=== PATIENT | female | born 1970 | race Caucasian/White ===

== ENCOUNTER 2022-09-16 08:16 | Outpatient (CLI) | payer OTHER, SELFPAY ==
--- OUTSIDE RECORDS SUMMARY | 2022-09-16 08:18 | XMS_ITS | Encounter Summary ---
:1970 Author Organization [place] Address [address] [place] [address] Care Team Providers Name Role Phone Lois Estevez MD Primary Care Provider Reason for Referral Diagnostic Imaging Mammo (Routine) - Closed Specialty Diagnoses / Procedures Referred By Contact Refer red To Contact Diagnoses Visit for screening mammogram Lois Estevez MD Procedures MA Screen Bilateral w/Jose MA Screening Digital Bilateral [address] [place] [place] [phone] Referral ID Status Reason Start Date Expiration Date Visits Requ ested Visits Authorized [id number] Closed 07/28/2019 07/27/2020 1 1 FOLDING MACHINE OPERATOR Reason for Visit Diagnostic Imaging Mammo (Routine) - Closed Specialty Diagnoses / Procedures Referred By Contact Refer red To Contact Diagnoses Visit for screening mammogram Lois Estevez MD Procedures MA Screen Bilateral w/Jose MA Screening Digital Bilateral [address] [place] [address] Referral ID Status Reason Start Date Expiration Date Visits Requ ested Visits Authorized [id number] Closed 07/28/2019 07/27/2020 1 1 Encounter Details Date Type Department Care Team Description 10/11/2019 Hospital Encounter [facility] Lois Estevez for screening [facility] Breast [place] MD [place] mammogram [address], [address] [place] [address] Social History Tobacco Use Types Packs/Day Years Used Date Smoking Tobacco: Never Assessed Sex Assigned at Date Recorded Not on file documented as of this encounter Plan of Treatment Upcoming Encounters Date Type Specialty Care Team Description 11/04/2022 Appointment Radiology. Lois Estevez MD [address] [place] [phone] (Wo rk) documented as of this encounter Procedures Procedure Name Priority Date/Time Associated Diagnosis Comme nts MA SCREENING Routine 10/11/2019 8:22 AM Visit for screening Re sults for this BILATERAL W/ JOSE FLAT FOLDING MACHINE OPERATOR mammogram procedure are in the results section. documented in this encounter Results MA Screen Bilateral w/Jose (10/11/2019 8:22 AM FLAT FOLDING MACHINE OPERATOR) Anatomical Region Laterality Modality Breast Bilateral Mammography Specimen (Source) Anatomical Location Collection Method / Collectio n Time Received Time / Laterality Volume Impressions 10/11/2019 8:29 AM FLAT FOLDING MACHINE OPERATOR IMPRESSION: BI-RADS CATEGORY: 1 - ??Negative. RECOMMENDED FOLLOW-UP: Annual Mammograph asad ALBARRAN MD Narrative 10/11/2019 8:29 AM FLAT FOLDING MACHINE OPERATOR SCREENING MAMMOGRAM, BILATERAL, DIGITAL w/CAD and TOMOSYNTHESIS, 10/11/2019 8:28 AM BREAST DENSITY: Heterogeneously dense. CLINICAL INFORMATION: Breast screening. ??Visit for screening mammogram, 10/05/2018 FINDINGS: Negative. Stable exam. Screeni ng exam in one year recommended. Procedure Note Michael Albarran MD - 10/11/2019Formatt ing of this note might be different from the original. SCREENING MAMMOGRAM, BILATERAL, DIGITAL w/CAD and TOMOSYNTHESIS, 10/11/2019 8:28 AM BREAST DENSITY: Heterogeneously dense. CLINICAL INFORMATION: Breast screening. Visit for screening mammogram, 10/05/2018 FINDINGS: Negative. Stable exam. Screeni ng exam in one year recommended. IMPRESSION: BI-RADS CATEGORY: 1 - Negati ve. RECOMMENDED FOLLOW-UP: Annual Mammograph asad ALBARRAN MD Lois Estevez MD IMG MAMMOGRAPHY ORDERABLES documented in this encounter Visit Diagnoses Diagnosis Visit for screening mammogram Other screening mammogram documented in this encounter Care Teams Electrical Prospecting Supervisor Relationship Specialty Start Date End Date Lois Estevez MD PCP - General chemical plant manager 08/10/[address] [facility] 100 [place] [phone] documented as of this encounter
--- OUTSIDE RECORDS SUMMARY | 2022-09-16 08:18 | XMS_ITS | Encounter Summary ---
:1970 Author Organization [place] Address [address] [place] [address] Care Team Providers Name Role Phone Lois Estevez MD Primary Care Provider Reason for Visit (Routine) - Closed Specialty Diagnoses / Procedures Referred By Contact Refer red To Contact Radiology Diagnoses SCREENING BILATERAL-DIGITAL Procedure Notes: 08/12/2011, 07/29/2010, 07/09/2008 Breast Center Procedures RADIOLOGY [address] [facility], [address] [place], [place] [address] Phone: Fax: Referral ID Status Reason Start Date Expiration Date Visits Requ ested Visits Authorized [id number] Closed 08/12/2012 08/12/2013 1 1 Encounter Details Date Type Department Care Team Description 08/16/2012 Hospital Encounter [facility] [address] [place], [address] [place] [address] [place] [phone] Social History Tobacco Use Types Packs/Day Years Used Date Smoking Tobacco: Never Assessed Sex Assigned at Date Recorded Not on file documented as of this encounter Plan of Treatment Upcoming Encounters Date Type Specialty Care Team Description 11/04/2022 Appointment Radiology. Lois Estevez MD [address] [place] [address] (Wo rk) documented as of this encounter Procedures Procedure Name Priority Date/Time Associated Diagnosis Comme nts MA SCREENING Routine 08/16/2012 9:28 AM Results f or this DIGITAL BILATERAL CDT procedure are in the results section. documented in this encounter Results Mammo Screening digital (bilat) (08/16/2012 9:28 AM CDT) Anatomical Region Laterality Modality Breast Bilateral Other Specimen (Source) Anatomical Collection Method Collection Time Re ceived Time Location / / Volume Laterality 08/16/2012 9:28 AM CDT Impressions 08/16/2012 10:51 AM CDT SCREENING MAMMOGRAPHY, BILATERAL, DIGITA L, w/CAD ??August 16, 2012. HISTORY/COMPARISON: 08/12/2011, 07/09/20 08 BREAST DENSITY: ??Heterogeneously dense. FINDINGS: ??No findings of suspicion for malignancy. IMPRESSION: ??BI-RADS 1, NEGATIVE. RECOMMENDATION: ??Annual screening mammo graphy. Lois Estevez MD IMG MAMMOGRAPHY ORDERABLES documented in this encounter Visit Diagnoses Not on filedocumented in this encounter Care Teams Professor Of Special Education Relationship Specialty Start Date End Date Lois Estevez MD PCP - General pewter fabricator 08/10/11 [address] [facility] 100 [place] [address] documented as of this encounter
--- OUTSIDE RECORDS SUMMARY | 2022-09-16 08:18 | XMS_ITS | Encounter Summary ---
:1970 Author Organization [place] Address [address] [place] [address] Care Team Providers Name Role Phone Lois Estevez MD Primary Care Provider Reason for Referral Diagnostic Imaging Mammo (Routine) - Closed Specialty Diagnoses / Procedures Referred By Contact Refer red To Contact Diagnoses Visit for screening mammogram Lois Estevez MD Procedures MA Screen Bilateral w/Jose [address] [phone] Referral ID Status Reason Start Date Expiration Date Visits Requ ested Visits Authorized [id number] Closed 09/04/2021 09/04/2022 1 1 UM OR ZOO DIRECTOR Reason for Visit Diagnostic Imaging Mammo (Routine) - Closed Specialty Diagnoses / Procedures Referred By Contact Refer red To Contact Diagnoses Visit for screening mammogram Lois Estevez MD Procedures MA Screen Bilateral w/Jose [address] [facility] 100 [place] [address] Referral ID Status Reason Start Date Expiration Date Visits Requ ested Visits Authorized [id number] Closed 09/04/2021 09/04/2022 1 1 Encounter Details Date Type Department Care Team Description 10/31/2021 Hospital Encounter [facility] Lois Estevez for screening [facility] Breast [place] MD [place] mammogram [address], [address] [place] [phone] Social History Tobacco Use Types Packs/Day Years Used Date Smoking Tobacco: Never Assessed Sex Assigned at Date Recorded Not on file COVID-19 Exposure Response Date Recorded In the last month, have you been in contact with No / Unsure 10/31/2021 7:36 AM MUSEUM OR ZOO DIRECTOR someone who was confirmed or suspected to have Coronavirus / COVID-19? documented as of this encounter Plan of Treatment Upcoming Encounters Date Type Specialty Care Team Description 11/04/2022 Appointment Radiology. Lois Estevez MD [address] [place] [phone] (Wo rk) documented as of this encounter Procedures Procedure Name Priority Date/Time Associated Diagnosis Comme nts MA SCREENING Routine 10/31/2021 8:44 AM Visit for screening Re sults for this BILATERAL W/ JOSE MUSEUM OR ZOO DIRECTOR mammogram procedure are in the results section. documented in this encounter Results MA Screen Bilateral w/Jose (10/31/2021 8:44 AM MUSEUM OR ZOO DIRECTOR) Anatomical Region Laterality Modality Breast Bilateral Mammography Specimen (Source) Anatomical Location Collection Method / Collectio n Time Received Time / Laterality Volume Narrative 10/31/2021 9:59 AM MUSEUM OR ZOO DIRECTOR BILATERAL FULL FIELD DIGITAL SCREENING MAMMOGRAM WITH TOMOSYNTHESIS Performed on: 10/31/21 Compared to: 10/11/2020 and 09/16/2015 Technique: ??This study was evaluated wi th the assistance of Computer-Aided Detection. ??Breast Tomosynthesis was us ed in interpretation. Findings: The breasts have scattered are as of fibroglandular density. ?? There is no radiographic evidence of mal ignancy. IMPRESSION: ACR BI-RADS Category 1: Nega tive RECOMMENDED FOLLOW-UP: Annual routine sc reening mammogram The results and recommendations of this examination will be communicated to the patient. Lois Estevez MD IMG MAMMOGRAPHY ORDERABLES documented in this encounter Visit Diagnoses Diagnosis Visit for screening mammogram Other screening mammogram documented in this encounter Care Teams Hvac Operations Technician Relationship Specialty Start Date End Date Lois Estevez MD PCP - General wire frame maker 08/10/[address] [facility] 100 [place] [address] documented as of this encounter
--- OUTSIDE RECORDS SUMMARY | 2022-09-16 08:18 | XMS_ITS | Encounter Summary ---
:1970 Author Organization [place] [facility] Address [address] [place] [address] Care Team Providers Name Role Phone Lois Estevez MD Primary Care Provider Encounter Details Date Type Department Care Team Description 10/11/2020 Travel Social History Tobacco Use Types Packs/Day Years Used Date Smoking Tobacco: Never Assessed Sex Assigned at Date Recorded Not on file COVID-19 Exposure Response Date Recorded In the last month, have you been in contact with No / Unsure 10/11/2020 9:10 AM BI DEVELOPER someone who was confirmed or suspected to have Coronavirus / COVID-19? documented as of this encounter Plan of Treatment Upcoming Encounters Date Type Specialty Care Team Description 11/04/2022 Appointment Radiology. Lois Estevez MD [address] [place], [place] [phone] (Wo rk) documented as of this encounter Visit Diagnoses Not on filedocumented in this encounter Care Teams Transport Assistant Relationship Specialty Start Date End Date Lois Estevez MD PCP - General sand conditioner machine 08/10/[address] [place] [phone] documented as of this encounter
--- OUTSIDE RECORDS SUMMARY | 2022-09-16 08:18 | XMS_ITS | Encounter Summary ---
:1970 Author Organization [facility] Address [address] [place] [address] Care Team Providers Name Role Phone Lois Estevez MD Primary Care Provider Reason for Referral Diagnostic Imaging Mammo - Closed Specialty Diagnoses / Procedures Referred By Contact Refer red To Contact Radiology. Diagnoses Visit for screening mammogram Lois Estevez MD Breast Center Procedures MA Screening Digital Bilateral [address] [facility] [address] [place] [address] [address] [place] [address] Phone: Fax: Referral ID Status Reason Start Date Expiration Date Visits Requ ested Visits Authorized [id number] Closed 07/26/2018 07/26/2019 1 1 [facility] Reason for Visit Diagnostic Imaging Mammo - Closed Specialty Diagnoses / Procedures Referred By Contact Refer red To Contact Radiology. Diagnoses Visit for screening mammogram Lois Estevez MD Breast Center Procedures MA Screening Digital Bilateral [address] [place] [address] [address] [place] [address] Phone: Fax: Referral ID Status Reason Start Date Expiration Date Visits Requ ested Visits Authorized [id number] Closed 07/26/2018 07/26/2019 1 1 Encounter Details Date Type Department Care Team Description 10/05/2018 Hospital Encounter [facility] Lois Estevez it for screening [facility] Breast [facility] MD [place] mammogram [address], [address] [place], [place] [phone] Social History Tobacco Use Types Packs/Day Years Used Date Smoking Tobacco: Never Assessed Sex Assigned at Date Recorded Not on file documented as of this encounter Plan of Treatment Upcoming Encounters Date Type Specialty Care Team Description 11/04/2022 Appointment Radiology. Lois Estevez MD [address] [place] [phone] (Wo rk) documented as of this encounter Procedures Procedure Name Priority Date/Time Associated Diagnosis Comme nts MA SCREENING Routine 10/05/2018 8:24 AM Visit for screening Re sults for this DIGITAL BILATERAL PHERESIS SPECIALIST mammogram procedure are in the results section. documented in this encounter Results MA Screening Digital Bilateral (10/05/2018 8:24 AM PHERESIS SPECIALIST) Anatomical Region Laterality Modality Breast Bilateral Mammography Specimen (Source) Anatomical Location Collection Method / Collectio n Time Received Time / Laterality Volume Impressions 10/05/2018 9:20 AM PHERESIS SPECIALIST IMPRESSION: BI-RADS CATEGORY: 1 - Negative. RECOMMENDED FOLLOW-UP: Annual Mammograph y. Recommend routine annual screening mammo graphy. Exam results letter mailed to patient. ALISA BLUE MD Narrative 10/05/2018 9:20 AM PHERESIS SPECIALIST SCREENING MAMMOGRAM, BILATERAL, DIGITAL w/CAD - 10/05/2018 8:24 AM. BREAST SYMPTOMS: No current breast compl aints. COMPARISON: ??09/29/17, 08/31/13. BREAST DENSITY: Scattered fibroglandular densities. COMMENTS: No findings of suspicion for m alignancy. Procedure Note Alisa Blue MD - 10/05/2018 SCREENING MAMMOGRAM, BILATERAL, DIGITAL w/CAD - 10/05/2018 8:24 AM. BREAST SYMPTOMS: No current breast compl aints. COMPARISON: 09/29/17, 08/31/13. BREAST DENSITY: Scattered fibroglandular densities. COMMENTS: No findings of suspicion for m alignancy. IMPRESSION: BI-RADS CATEGORY: 1 - Negati ve. RECOMMENDED FOLLOW-UP: Annual Mammograph y. Recommend routine annual screening mammo graphy. Exam results letter mailed to patient. ALISA BLUE MD Lois Estevez MD IMG MAMMOGRAPHY ORDERABLES documented in this encounter Visit Diagnoses Diagnosis Visit for screening mammogram Other screening mammogram documented in this encounter Care Teams Plant Maintenance Worker Relationship Specialty Start Date End Date Lois Estevez MD PCP - General pavilion cutter 08/10/11 [address] [facility] 100 [place] [address] documented as of this encounter
--- OUTSIDE RECORDS SUMMARY | 2022-09-16 08:18 | XMS_ITS | Encounter Summary ---
:1970 Author Organization [place] Address [address] [place] [address] Care Team Providers Name Role Phone Unavailable Primary Care Provider Unavailable Encounter Details Date Type Department Care Team Description 07/29/2010 Results Only [facility] Lois Estevez MD Hospital Results [address] [phone] (Wo rk) Social History Tobacco Use Types Packs/Day Years Used Date Smoking Tobacco: Never Assessed Sex Assigned at Date Recorded Not on file documented as of this encounter Plan of Treatment Upcoming Encounters Date Type Specialty Care Team Description 11/04/2022 Appointment Radiology. Lois Estevez MD [address] [place], [place] [phone] (Wo rk) documented as of this encounter Procedures Procedure Name Priority Date/Time Associated Diagnosis Comme [facility] MAMMO SCREEN Routine 07/29/2010 10:04 AM Resul ts for this BILATATERAL, INCL CDT procedure are in CAD WHEN PERF the results section. documented in this encounter Results SCREENING MAMMOGRAPHY DIGITAL (BILAT) (07/29/2010 10:04 AM CDT) Anatomical Region Laterality Modality Other Specimen (Source) Anatomical Collection Method Collection Time Re ceived Time Location / / Volume Laterality 07/29/2010 10:04 AM CDT Impressions 07/29/2010 10:36 AM CDT SCREENING MAMMOGRAM, BILATERAL, DIGITAL w/CAD BREAST SYMPTOMS/COMPARISON: 07/22/2009,0 07/09/2008 BREAST PARENCHYMAL PATTERN: Heterogeneou sly dense FINDINGS: Negative. IMPRESSION: BI-RADS 1, NEGATIVE. Lois Estevez MD SPECIAL IMAGING STUDIES documented in this encounter Visit Diagnoses Not on filedocumented in this encounter
--- OUTSIDE RECORDS SUMMARY | 2022-09-16 08:18 | XMS_ITS | Encounter Summary ---
:1970 Author Organization [facility] Address [address] [place] [address] Care Team Providers Name Role Phone Lois Estevez MD Primary Care Provider Encounter Details Date Type Department Care Team Description 10/05/2018 Travel Social History Tobacco Use Types Packs/Day Years Used Date Smoking Tobacco: Never Assessed Sex Assigned at Date Recorded Not on file documented as of this encounter Plan of Treatment Upcoming Encounters Date Type Specialty Care Team Description 11/04/2022 Appointment Radiology. Lois Estevez MD [address] [place] [phone] (Wo rk) documented as of this encounter Visit Diagnoses Not on filedocumented in this encounter Care Teams Cook Night Relationship Specialty Start Date End Date Lois Estevez MD PCP - General fun house attendant 08/10/[address] [place] [phone] documented as of this encounter
--- OUTSIDE RECORDS SUMMARY | 2022-09-16 08:18 | XMS_ITS | Encounter Summary ---
:1970 Author Organization [facility] Address [address] [place] [address] Care Team Providers Name Role Phone Lois Estevez MD Primary Care Provider Reason for Visit (Routine) - Closed Specialty Diagnoses / Procedures Referred By Contact Refer red To Contact Radiology / Radiology. Diagnoses sb: pt. ni, [facility] 08/16/12, no assistance Rh Breast [facility] Procedures MA SCREENING DIGITAL BILATERAL [address], [address] [place] [address] Phone: Fax: Referral ID Status Reason Start Date Expiration Date Visits Requ ested Visits Authorized [id number] Closed 08/30/2013 08/30/2014 1 1 Encounter Details Date Type Department Care Team Description 08/31/[address] [facility] Lois Estevez [facility] er screening [facility] MD [place] mammogram [address], [address] [place] [phone] Social History Tobacco Use Types Packs/Day Years Used Date Smoking Tobacco: Never Assessed Sex Assigned at Date Recorded Not on file documented as of this encounter Plan of Treatment Upcoming Encounters Date Type Specialty Care Team Description 11/04/2022 Appointment Radiology. Lois Estevez MD [address] [place] [phone] (Wo rk) documented as of this encounter Procedures Procedure Name Priority Date/Time Associated Diagnosis Comme nts MA SCREENING Routine 08/31/2013 9:50 AM Other screening Result s for this DIGITAL BILATERAL DATABASE ANALYST mammogram procedure are in the results section. documented in this encounter Results MA Screening Digital Bilateral (08/31/2013 9:50 AM DATABASE ANALYST) Anatomical Region Laterality Modality Breast Bilateral Mammography Specimen (Source) Anatomical Location Collection Method / Collectio n Time Received Time / Laterality Volume Impressions 08/31/2013 9:55 AM DATABASE ANALYST IMPRESSION: BI-RADS CATEGORY: 1 - ??NEGATIVE RECOMMENDED FOLLOW-UP: Annual Mammograph y DIO ALBARRAN MD Narrative 08/31/2013 9:55 AM DATABASE ANALYST SCREENING MAMMOGRAM, BILATERAL, DIGITAL w/CAD, 08/31/2013 9:54 AM BREAST DENSITY: Heterogeneously dense ? FINDINGS: Negative. Screening exam in on e year recommended. Procedure Note Dio Albarran MD - 08/31/2013Formatt ing of this note might be different from the original. SCREENING MAMMOGRAM, BILATERAL, DIGITAL w/CAD, 08/31/2013 9:54 AM BREAST DENSITY: Heterogeneously dense FINDINGS: Negative. Screening exam in on e year recommended. IMPRESSION IMPRESSION: BI-RADS CATEGORY: 1 - NEGATI VE RECOMMENDED FOLLOW-UP: Annual Mammograph y DIO ALBARRAN MD Lois Estevez MD IMG MAMMOGRAPHY ORDERABLES documented in this encounter Visit Diagnoses Diagnosis Other screening mammogram documented in this encounter Care Teams Girls Tennis Coach Relationship Specialty Start Date End Date Lois Estevez MD PCP - General service rig operator 08/10/[address] [place] [address] documented as of this encounter
--- OUTSIDE RECORDS SUMMARY | 2022-09-16 08:18 | XMS_ITS | Encounter Summary ---
:1970 Author Organization [place] Address [address] [place] [address] Care Team Providers Name Role Phone Lois Estevez MD Primary Care Provider Reason for Visit (Routine) - Closed Specialty Diagnoses / Procedures Referred By Contact Refer red To Contact Radiology / Radiology. Diagnoses Prev at [facility] -genny info given Breast Center Procedures MA SCREENING DIGITAL BILATERAL [address], [address] [place] [address] Phone: Fax: Referral ID Status Reason Start Date Expiration Date Visits Requ ested Visits Authorized [id number] Closed 09/12/2015 09/11/2016 1 1 Encounter Details Date Type Department Care Team Description 09/16/2015 Hospital Encounter [facility] Lois Estevez for screening [facility] Breast [place] MD [place] mammogram [address], [address] [place], [place] [phone] Social History Tobacco Use Types Packs/Day Years Used Date Smoking Tobacco: Never Assessed Sex Assigned at Date Recorded Not on file documented as of this encounter Plan of Treatment Upcoming Encounters Date Type Specialty Care Team Description 11/04/2022 Appointment Radiology. Lois Estevez MD [address] [place] [phone] (Wo rk) documented as of this encounter Procedures Procedure Name Priority Date/Time Associated Diagnosis Comme nts MA SCREENING Routine 09/16/2015 9:53 AM Visit for screening Re sults for this DIGITAL BILATERAL ENVIRONMENTAL SERVICES SUPERVISOR mammogram procedure are in the results section. documented in this encounter Results MA Screening Digital Bilateral (09/16/2015 9:53 AM ENVIRONMENTAL SERVICES SUPERVISOR) Anatomical Region Laterality Modality Breast Bilateral Mammography Specimen (Source) Anatomical Location Collection Method / Collectio n Time Received Time / Laterality Volume Impressions 09/16/2015 10:07 AM ENVIRONMENTAL SERVICES SUPERVISOR IMPRESSION: BI-RADS CATEGORY: 1 - ??Negative. RECOMMENDED FOLLOW-UP: Annual Mammograph y. ?? DIO ALBARRAN MD Narrative 09/16/2015 10:07 AM ENVIRONMENTAL SERVICES SUPERVISOR SCREENING MAMMOGRAM, BILATERAL, DIGITAL w/CAD, 09/16/2015 10:07 AM BREAST DENSITY: Scattered fibroglandular densities. CLINICAL INFORMATION: ??Encounter for sc reening mammogram for malignant neoplasm of breast, 09/05/2014, 1 FINDINGS: Negative. Screening exam in on e year recommended. Procedure Note Dio Albarran MD - 09/16/2015Formatt ing of this note might be different from the original. SCREENING MAMMOGRAM, BILATERAL, DIGITAL w/CAD, 09/16/2015 10:07 AM BREAST DENSITY: Scattered fibroglandular densities. CLINICAL INFORMATION: Encounter for scre ening mammogram for malignant neoplasm of breast, 09/05/2014, 1 FINDINGS: Negative. Screening exam in on e year recommended. IMPRESSION IMPRESSION: BI-RADS CATEGORY: 1 - Negati ve. RECOMMENDED FOLLOW-UP: Annual Mammograph y. DIO ALBARRAN MD Lois Estevez MD IMG MAMMOGRAPHY ORDERABLES documented in this encounter Visit Diagnoses Diagnosis Visit for screening mammogram Other screening mammogram documented in this encounter Care Teams Ux Specialist Relationship Specialty Start Date End Date Lois Estevez MD PCP - General grain elevator agent 08/10/[address] [place] [phone] documented as of this encounter
--- OUTSIDE RECORDS SUMMARY | 2022-09-16 08:18 | XMS_ITS | Encounter Summary ---
:1970 Author Organization [place] Address [address] [place] [address] Care Team Providers Name Role Phone Lois Estevez MD Primary Care Provider Reason for Referral Diagnostic Imaging Mammo (Routine) - Closed Specialty Diagnoses / Procedures Referred By Contact Refer red To Contact Diagnoses Screening mammogram, encounter for Lois Estevez MD Procedures MA Screen Bilateral w/Jose [address] [place] [address] Referral ID Status Reason Start Date Expiration Date Visits Requ ested Visits Authorized [id number] Closed 08/06/2020 08/06/2021 1 1 GRINDER Reason for Visit Diagnostic Imaging Mammo (Routine) - Closed Specialty Diagnoses / Procedures Referred By Contact Refer red To Contact Diagnoses Screening mammogram, encounter for Lois Estevez MD Procedures MA Screen Bilateral w/Jose [address] [place] [address] Referral ID Status Reason Start Date Expiration Date Visits Requ ested Visits Authorized [id number] Closed 08/06/2020 08/06/2021 1 1 Encounter Details Date Type Department Care Team Description 10/11/2020 Hospital Encounter [facility] Lois Estevezning mammogram, [facility] Breast [place] MD [place] encounter for [address], [address] [place], [place] [phone] Social History Tobacco Use Types Packs/Day Years Used Date Smoking Tobacco: Never Assessed Sex Assigned at Date Recorded Not on file COVID-19 Exposure Response Date Recorded In the last month, have you been in contact with No / Unsure 10/11/2020 9:10 AM SALT GRINDER someone who was confirmed or suspected to have Coronavirus / COVID-19? documented as of this encounter Plan of Treatment Upcoming Encounters Date Type Specialty Care Team Description 11/04/2022 Appointment Radiology. Lois Estevez MD [address] [place] [phone] (Wo rk) documented as of this encounter Procedures Procedure Name Priority Date/Time Associated Diagnosis Comme nts MA SCREENING Routine 10/11/2020 9:55 AM Screening mammogram, R esults for this BILATERAL W/ JOSE SALT GRINDER encounter for procedure are in the results section. documented in this encounter Results MA Screen Bilateral w/Jose (10/11/2020 9:55 AM SALT GRINDER) Anatomical Region Laterality Modality Breast Bilateral Mammography Specimen (Source) Anatomical Location Collection Method / Collectio n Time Received Time / Laterality Volume Impressions 10/11/2020 11:58 AM SALT GRINDER IMPRESSION: BI-RADS CATEGORY: 1 - ??Negative RECOMMENDED FOLLOW-UP: Annual Mammograph y. Exam results letter mailed to patient. MARNI LOPEZ MD Narrative 10/11/2020 11:58 AM SALT GRINDER SCREENING MAMMOGRAM, BILATERAL, DIGITAL w/CAD and TOMOSYNTHESIS - 10/11/2020 9:55 AM BREAST SYMPTOMS: No current breast compl aints. COMPARISON: ??10/11/2019, 09/22/2016. BREAST DENSITY: Scattered fibroglandular densities. COMMENTS: No findings of suspicion for m alignancy. Procedure Note Marni Lopez MD - 10/11/2020F ormatting of this note might be different from the original. SCREENING MAMMOGRAM, BILATERAL, DIGITAL w/CAD and TOMOSYNTHESIS - 10/11/2020 9:55 AM BREAST SYMPTOMS: No current breast compl aints. COMPARISON: 10/11/2019, 09/22/2016. BREAST DENSITY: Scattered fibroglandular densities. COMMENTS: No findings of suspicion for m alignancy. IMPRESSION: BI-RADS CATEGORY: 1 - Negati ve RECOMMENDED FOLLOW-UP: Annual Mammograph y. Exam results letter mailed to patient. MARNI LOPEZ MD Lois Estevez MD IMG MAMMOGRAPHY ORDERABLES documented in this encounter Visit Diagnoses Diagnosis Screening mammogram, encounter for documented in this encounter Care Teams School Library Media Program Director Relationship Specialty Start Date End Date Lois Estevez MD PCP - General can reforming machine operator 08/10/[address] [phone] documented as of this encounter
--- OUTSIDE RECORDS SUMMARY | 2022-09-16 08:18 | XMS_ITS | Clinical Summary ---
:1970 Author Organization [place] Address [address] [place] [address] Care Team Providers Name Role Phone Lois Estevez MD Primary Care Provider Family History Medical History Relation Comments Breast Cancer Mother in her late 50s Ovarian Cancer No family hx of Relation Status Comments Mother Social History Tobacco Use Types Packs/Day Years Used Date Smoking Tobacco: Never Assessed Sex Assigned at Date Recorded Not on file Plan of Treatment Upcoming Encounters Date Type Specialty Care Team Description 11/04/2022 Appointment Radiology. Lois Estevez MD [address] [place] [phone] (Wo rk) Health Maintenance Due Date Last Done Comments ADVANCE CARE PLANNING 1970 ANNUAL REVIEW OF HM ORDERS 1968 CT COLONOGRAPHY 1968 FIT-DNA (Cologuard) 1968 FIT 1968 FLEX SIG 1968 HEPATITIS B IMMUNIZATION (1 1968 of 3 - 3-dose series) YEARLY PREVENTIVE VISIT 1968 COLONOSCOPY 1978 COLORECTAL CANCER SCREENING 1978 HIV SCREENING 1983 HEPATITIS C SCREENING 1986 PAP 1989 LIPID 2013 PHQ-2 (once per calendar 10/25/2021 year) DTAP/TDAP/TD IMMUNIZATION 02/28/2022 02/29/2012, 04/22/1999 , (3 - Td or Tdap) 05/25/1988 COVID-19 Vaccine (5 - 05/23/2022 03/28/2022, 09/28/2021, Booster for Moderna series) 01/22/2021, Addition al history exists INFLUENZA VACCINE (#1) 2022 08/23/2021, 08/01/2020, 08/01/2019, Additional history exists MAMMO SCREENING 10/31/2022 10/31/2021, 10/11/2020, 10/11/2019, Additional history exists IPV IMMUNIZATION Completed 07/25/1981, 01/23/1974, 1968, Additional history exists ZOSTER IMMUNIZATION Completed 11/22/2020, 09/18/2020 MENINGITIS IMMUNIZATION Aged Out No longe r eligible based on patient 's age to complete this topic Pneumococcal Vaccine: Aged Out No longer eligible Pediatrics (0 to 5 Years) based on patient's age and At-Risk Patients (6 to to co mplete this topic 64 Years) Insurance Payer Benefit Plan / Subscriber ID Effective Phone Address T ype Group Dates PREFERREDONE PREFERREDONE [id number] 2021-Prese [phone] [address] [address] PPO [facility] [address] [facility] [id number] Care Teams Freezer Person Relationship Specialty Start Date End Date Lois Estevez MD PCP - General mva operator 08/10/[address] [facility] [address] [place] [address]
--- OUTSIDE RECORDS SUMMARY | 2022-09-16 08:18 | XMS_ITS | Encounter Summary ---
:1970 Author Organization [place] Address [address] [place] [address] Care Team Providers Name Role Phone Lois Estevez MD Primary Care Provider Reason for Visit (Routine) - Closed Specialty Diagnoses / Procedures Referred By Contact Refer red To Contact Radiology Diagnoses SCREENING BILATERAL-DIGITAL Procedure Notes: Routine Breast Center Procedures RADIOLOGY [address], [address] [place], [place] [address] Phone: Fax: Referral ID Status Reason Start Date Expiration Date Visits Requ ested Visits Authorized [id number] Closed 08/10/2011 08/09/2012 1 1 Encounter Details Date Type Department Care Team Description 08/12/2011 Hospital Encounter [facility] [address], [address] [place] [address] [place] [phone] Social History Tobacco Use Types Packs/Day [...] Associated Diagnosis Comme nts MA SCREENING Routine 08/12/2011 8:19 AM Results f or this DIGITAL BILATERAL CDT procedure are in the results section. documented in this encounter Results Mammo Screening digital (bilat) (08/12/2011 8:19 AM CDT) Anatomical Region Laterality Modality Breast Bilateral Other Specimen (Source) Anatomical Collection Method Collection Time Re ceived Time Location / / Volume Laterality 08/12/2011 8:19 AM CDT Impressions 08/12/2011 8:30 AM CDT SCREENING MAMMOGRAM, BILATERAL, DIGITAL w/CAD BREAST SYMPTOMS/COMPARISON: 07/29/2010, 07/09/2008 BREAST PARENCHYMAL PATTERN: Heterogeneou sly dense. which could obscure detection of small masses FINDINGS: Negative. IMPRESSION: BI-RADS 1, NEGATIVE. Lois Estevez MD IMG MAMMOGRAPHY ORDERABLES documented in this encounter Visit Diagnoses Not on filedocumented in this encounter Care Teams Finisher Hot Strip Relationship Specialty Start Date End Date Lois Estevez MD PCP - General electric refrigerator servicer 08/10/[address] [place] [phone] documented as of this encounter
--- OUTSIDE RECORDS SUMMARY | 2022-09-16 08:18 | XMS_ITS | Encounter Summary ---
:1970 Author Organization [place] Address [address] [place] [address] Care Team Providers Name Role Phone Lois Estevez MD Primary Care Provider Reason for Visit (Routine) - Closed Specialty Diagnoses / Procedures Referred By Contact Refer red To Contact Radiology / Radiology. Diagnoses declined [facility] Breast [place] Procedures MA SCREENING DIGITAL BILATERAL [address], [address] [place] [address] Phone: Fax: Referral ID Status Reason Start Date Expiration Date Visits Requ ested Visits Authorized [id number] Closed 09/23/2017 09/23/2018 1 1 Encounter Details Date Type Department Care Team Description 09/29/2017 Hospital Encounter [facility] Lois Estevez [facility] Breast [place] MD [place] screening mammogram [address], [address] for h igh-risk patient [address] [place] [phone] Social History Tobacco Use Types Packs/Day Years Used Date Smoking Tobacco: Never Assessed Sex Assigned at Date Recorded Not on file documented as of this encounter Plan of Treatment Upcoming Encounters Date Type Specialty Care Team Description 11/04/2022 Appointment Radiology. Lois Estevez MD [address] [place] [phone] (Wo rk) documented as of this encounter Procedures Procedure Name Priority Date/Time Associated Diagnosis Comme nts MA SCREENING Routine 09/29/2017 10:04 AM Encounter for Results for this DIGITAL BILATERAL RESIDENTIAL CARE OFFICER screening mammogram pro cedure are in for high-risk the results patient section. documented in this encounter Results MA Screening Digital Bilateral (09/29/2017 10:04 AM RESIDENTIAL CARE OFFICER) Anatomical Region Laterality Modality Breast Bilateral Mammography Specimen (Source) Anatomical Location Collection Method / Collectio n Time Received Time / Laterality Volume Impressions 09/29/2017 10:12 AM RESIDENTIAL CARE OFFICER IMPRESSION: BI-RADS CATEGORY: 1 - ??Negative. RECOMMENDED FOLLOW-UP: Annual Mammograph y. DIO ALBARRAN MD Narrative 09/29/2017 10:12 AM RESIDENTIAL CARE OFFICER SCREENING MAMMOGRAM, BILATERAL, DIGITAL w/CAD, 09/29/2017 10:11 AM BREAST DENSITY: Scattered fibroglandular densities. CLINICAL INFORMATION: Breast screening. ??; Encounter for screening mammogram for high-risk patient, , 08/31/13 FINDINGS: Negative. Stable exam. Screeni ng exam in one year recommended. Procedure Note Dio Albarran MD - 09/29/2017Formatt ing of this note might be different from the original. SCREENING MAMMOGRAM, BILATERAL, DIGITAL w/CAD, 09/29/2017 10:11 AM BREAST DENSITY: Scattered fibroglandular densities. CLINICAL INFORMATION: Breast screening. ; Encounter for screening mammogram for high-risk patient, , 08/31/13 FINDINGS: Negative. Stable exam. Screeni ng exam in one year recommended. IMPRESSION: BI-RADS CATEGORY: 1 - Negati ve. RECOMMENDED FOLLOW-UP: Annual Mammograph yJorge ALBARRAN MD Lois Estevez MD IMG MAMMOGRAPHY ORDERABLES documented in this encounter Visit Diagnoses Diagnosis Encounter for screening mammogram for hi gh-risk patient documented in this encounter Care Teams Intermodal Owner Operator Truck Driver Relationship Specialty Start Date End Date Lois Estevez MD PCP - General transformer coil winder 08/10/[address] [place] [phone] documented as of this encounter
--- OUTSIDE RECORDS SUMMARY | 2022-09-16 08:18 | XMS_ITS | Encounter Summary ---
:1970 Author Organization [place] Address [address] [place] [address] Care Team Providers Name Role Phone Lois Estevez MD Primary Care Provider Reason for Visit (Routine) - Closed Specialty Diagnoses / Procedures Referred By Contact Refer red To Contact Radiology / Radiology. Diagnoses pmdh 08-31-2013 [facility] women imaging na, ni, sb pt [facility] Breast [facility] Procedures MA SCREENING DIGITAL BILATERAL [address], [address] [place] [address] Phone: Fax: Referral ID Status Reason Start Date Expiration Date Visits Requ ested Visits Authorized [id number] Closed 09/04/2014 09/04/2015 1 1 Encounter Details Date Type Department Care Team Description 09/05/2014 Hospital Encounter [facility] Lois Estevez screening, [facility] Breast [place] MD [place] unspecified [address], [address] [place] [phone] Social History Tobacco Use Types Packs/Day Years Used Date Smoking Tobacco: Never Assessed Sex Assigned at Date Recorded Not on file documented as of this encounter Plan of Treatment Upcoming Encounters Date Type Specialty Care Team Description 11/04/2022 Appointment Radiology. Lois Estevez MD [address] [place] [phone] (Wo rk) documented as of this encounter Procedures Procedure Name Priority Date/Time Associated Diagnosis Comme nts MA SCREENING Routine 09/05/2014 9:09 AM Breast Screening, Resu lts for this DIGITAL BILATERAL PIPED POCKET MACHINE OPERATOR Unspecified procedure are in the results section. documented in this encounter Results MA Screening Digital Bilateral (09/05/2014 9:09 AM PIPED POCKET MACHINE OPERATOR) Anatomical Region Laterality Modality Breast Bilateral Mammography Specimen (Source) Anatomical Location Collection Method / Collectio n Time Received Time / Laterality Volume Impressions 09/05/2014 2:48 PM PIPED POCKET MACHINE OPERATOR IMPRESSION: BI-RADS CATEGORY: 1 - ??NEGATIVE. RECOMMENDED FOLLOW-UP: Annual Mammograph y Exam results letter mailed to patient. PATRICE GOLDSTEIN MD Narrative 09/05/2014 2:48 PM PIPED POCKET MACHINE OPERATOR SCREENING MAMMOGRAM, BILATERAL, DIGITAL w/CAD - 09/05/2014 9:09 AM. BREAST SYMPTOMS: No current breast compl aints. COMPARISON: ??08/31/13, 07/22/09. BREAST DENSITY: Scattered fibroglandular densities. COMMENTS: No findings of suspicion for m alignancy. ? Procedure Note Patrice Goldstein MD - 4 SCREENING MAMMOGRAM, BILATERAL, DIGITAL w/CAD - 09/05/2014 9:09 AM. BREAST SYMPTOMS: No current breast compl aints. COMPARISON: 08/31/13, 07/22/09. BREAST DENSITY: Scattered fibroglandular densities. COMMENTS: No findings of suspicion for m alignancy. IMPRESSION IMPRESSION: BI-RADS CATEGORY: 1 - NEGATI VE. RECOMMENDED FOLLOW-UP: Annual Mammograph y Exam results letter mailed to patient. PATRICE GOLDSTEIN MD Lois Estevez MD IMG MAMMOGRAPHY ORDERABLES documented in this encounter Visit Diagnoses Diagnosis Breast screening, unspecified documented in this encounter Care Teams Vendor Management Consultant Relationship Specialty Start Date End Date Lois Estevez MD PCP - General adjudication specialist 08/10/[address] [place] [address] documented as of this encounter
--- OUTSIDE RECORDS SUMMARY | 2022-09-16 08:18 | XMS_ITS | Encounter Summary ---
:1970 Author Organization [place] Address [address] [place] [address] Care Team Providers Name Role Phone Lois Estevez MD Primary Care Provider Encounter Details Date Type Department Care Team Description 10/31/2021 Travel Social History Tobacco Use Types Packs/Day Years Used Date Smoking Tobacco: Never Assessed Sex Assigned at Date Recorded Not on file COVID-19 Exposure Response Date Recorded In the last month, have you been in contact with No / Unsure 10/31/2021 7:36 AM SORTING COWS WORKER someone who was confirmed or suspected to have Coronavirus / COVID-19? documented as of this encounter Plan of Treatment Upcoming Encounters Date Type Specialty Care Team Description 11/04/2022 Appointment Radiology. Lois Estevez MD [address] [place], [place] [phone] (Wo rk) documented as of this encounter Visit Diagnoses Not on filedocumented in this encounter Care Teams Waste Salvager Relationship Specialty Start Date End Date Lois Estevez MD PCP - General welder apprentice gas 08/10/[address] [place] [phone] documented as of this encounter
--- OUTSIDE RECORDS SUMMARY | 2022-09-16 08:18 | XMS_ITS | Encounter Summary ---
:1970 Author Organization [place] Address [address] [place] [address] Care Team Providers Name Role Phone Lois Estevez MD Primary Care Provider Reason for Visit (Routine) - Closed Specialty Diagnoses / Procedures Referred By Contact Refer red To Contact Radiology / Radiology. Diagnoses Previous images at [facility], informed [facility] Breast [facility] r Procedures [place] SCREENING DIGITAL BILATERAL [address], [address] [place] [address] Phone: Fax: Referral ID Status Reason Start Date Expiration Date Visits Requ ested Visits Authorized [id number] Closed 09/15/2016 09/15/2017 1 1 Encounter Details Date Type Department Care Team Description 09/22/2016 Hospital Encounter [facility] Lois Estevez for [facility] Breast [place] MD [place] screening mammogram [address], [address] for b reast cancer [address] [place] [phone] Social History Tobacco Use Types Packs/Day Years Used Date Smoking Tobacco: Never Assessed Sex Assigned at Date Recorded Not on file documented as of this encounter Plan of Treatment Upcoming Encounters Date Type Specialty Care Team Description 11/04/2022 Appointment Radiology. Lois Estevez MD [address] [place] [phone] (Wo rk) documented as of this encounter Procedures Procedure Name Priority Date/Time Associated Diagnosis Comme nts MA SCREENING Routine 09/22/2016 8:01 AM Encounter for Results for this DIGITAL BILATERAL PHOTOGRAVURE PRESS OPERATOR screening mammogram pro cedure are in for breast cancer the result s section. documented in this encounter Results MA Screening Digital Bilateral (09/22/2016 8:01 AM PHOTOGRAVURE PRESS OPERATOR) Anatomical Region Laterality Modality Breast Bilateral Mammography Specimen (Source) Anatomical Location Collection Method / Collectio n Time Received Time / Laterality Volume Impressions 09/22/2016 8:09 AM PHOTOGRAVURE PRESS OPERATOR IMPRESSION: BI-RADS CATEGORY: 1 - ??Negative. RECOMMENDED FOLLOW-UP: Annual Mammograph y. DIO ALBARRAN MD Narrative 09/22/2016 8:09 AM PHOTOGRAVURE PRESS OPERATOR SCREENING MAMMOGRAM, BILATERAL, DIGITAL w/CAD, 09/22/2016 8:09 AM BREAST DENSITY: Scattered fibroglandular densities. CLINICAL INFORMATION: ??Encounter for sc reening mammogram for malignant neoplasm of breast, 09/16/2015, 3 FINDINGS: Negative. Stable exam. Screeni ng exam in one year recommended. Procedure Note Dio Albarran MD - 09/22/2016Formatt ing of this note might be different from the original. SCREENING MAMMOGRAM, BILATERAL, DIGITAL w/CAD, 09/22/2016 8:09 AM BREAST DENSITY: Scattered fibroglandular densities. CLINICAL INFORMATION: Encounter for scre ening mammogram for malignant neoplasm of breast, 09/16/2015, 3 FINDINGS: Negative. Stable exam. Screeni ng exam in one year recommended. IMPRESSION: BI-RADS CATEGORY: 1 - Negati ve. RECOMMENDED FOLLOW-UP: Annual Mammograph yJorge ALBARRAN MD Lois Estevez MD IMG MAMMOGRAPHY ORDERABLES documented in this encounter Visit Diagnoses Diagnosis Encounter for screening mammogram for br east cancer documented in this encounter Care Teams Relief Docking Master Relationship Specialty Start Date End Date Lois Estevez MD PCP - General javascript front end developer 08/10/[address] [place] [phone] documented as of this encounter
--- OUTSIDE RECORDS SUMMARY | 2022-09-16 08:19 | XMS_ITS ---
:1970 Author Care Team Providers Name Role Phone Lois Estevez Primary Care Provider Unavailable Allergies Code Code System Name Reaction Severity Status Onset NKDA ? Notes: 05/24/2020: NO KNOWN DRUG ALLER GIES *Note: 10/10/2019 - Medications Name Status Start Date Stop Date ? ? aspirin 81 mg tablet,delayed release Active ? Not available Take 1 tablet every day by oral route. lisinopril 5 mg tablet Active ? Not avail able Problems No Known Problems Procedures Date Name Performed by ? ? Tooth Extraction Information not avai lable Results Lab Results Date Name Specimen Result Interpretation Description Value Range Status Address ? ? Hemoglobin ? Fingerstick 12.0 12.0-15.0 ? [id number]: (Hb), Hemoglobin g/dL g/dL [address] [facility] [address], [address] [place] [address] Blood Past Encounters 10/31/2021 Gynecologic Examination Lois Estevez MD: [address] [facility], [address], [place] [address], Ph. Social History Tobacco Smoking Status Never Smoker Notes: Tobacco *Status: Never *Note: 10/10/2019 - Vaccine List Vaccine Type COVID-19, mRNA, LNP-S, PF, 100 mcg/0.5 m L dose (Moderna) 09/28/2021?0.25 mL influenza, seasonal, injectable 10/04/2013 Plan of Care Reminders Provider Appointments None recorded. ? ? Lab None recorded. ? ? Referral None recorded. ? ? Procedures None recorded. ? ? Surgeries None recorded. ? ? Imaging None recorded. ? ? Vitals 10/31/2021 08:30AM G_ANNUAL EXAM Height Weight BMI Blood Pressure 5 ft 2 in 142 lbs 26 kg/m2 128/80 mm[Hg] 10/11/2020 08:30AM G_ANNUAL EXAM Height Weight BMI Blood Pressure 5 ft 2 in 142 lbs 26 kg/m2 120/80 mm[Hg] 10/11/2019 Height Weight BMI Blood Pressure 5 ft 2.04 in 140 lbs 25.61 kg/m2 120/78 mm[Hg] 10/05/2018 Height Weight BMI Blood Pressure 5 ft 2.04 in 139 lbs 25.42 kg/m2 122/76 mm[Hg] 09/29/2017 Height Weight BMI Blood Pressure 5 ft 2.04 in 135 lbs 24.69 kg/m2 128/80 mm[Hg] 09/30/2016 Height Weight BMI Blood Pressure 5 ft 2.52 in 129 lbs 23.22 kg/m2 140/88 mm[Hg] 10/14/2015 Height Weight BMI Blood Pressure 5 ft 2.52 in 131 lbs 23.58 kg/m2 106/72 mm[Hg] 10/10/2014 Height Weight BMI Blood Pressure 5 ft 2.52 in 129.19 lbs 23.25 kg/m2 108/68 mm[Hg] 10/04/2013 Height Weight BMI Blood Pressure 5 ft 2.52 in 122 lbs 21.96 kg/m2 110/72 mm[Hg] 09/07/2012 Height Weight BMI Blood Pressure 5 ft 2.52 in 126 lbs 22.68 kg/m2 122/68 mm[Hg] 08/12/2011 Height Weight BMI Blood Pressure 5 ft 2.52 in 122 lbs 21.96 kg/m2 104/74 mm[Hg] 08/06/2010 Height Weight BMI Blood Pressure 5 ft 2.52 in 125 lbs 22.50 kg/m2 128/82 mm[Hg] 01/29/2010 Height Weight BMI Blood Pressure 5 ft 2.52 in 125 lbs 22.50 kg/m2 116/74 mm[Hg] 07/31/2009 Height Weight BMI Blood Pressure 5 ft 2.52 in 125 lbs 22.50 kg/m2 126/76 mm[Hg]
--- OUTSIDE RECORDS SUMMARY | 2022-09-16 08:19 | XMS_ITS | Encounter Summary ---
:1970 Author Organization [place] Address [address] [place] [address] Care Team Providers Name Role Phone Unavailable Primary Care Provider Unavailable Encounter Details Date Type Department Care Team Description 07/09/2008 Results Only [facility] Shala Morrell MD Hospital Results Social History Tobacco Use Types Packs/Day Years Used Date Smoking Tobacco: Never Assessed Sex Assigned at Date Recorded Not on file documented as of this encounter Plan of Treatment Upcoming Encounters Date Type Specialty Care Team Description 11/04/2022 Appointment Radiology. Lois Estevez MD [address] [place] [address] (Wo rk) documented as of this encounter Procedures Procedure Name Priority Date/Time Associated Diagnosis Comme nts MAMMO SCREEN Routine 07/09/2008 10:28 AM Resul ts for this BILATATERAL, INCL CDT procedure are in CAD WHEN PERF the results section. documented in this encounter Results SCREENING MAMMOGRAPHY DIGITAL (BILAT) (07/09/2008 10:28 AM CDT) Anatomical Region Laterality Modality Other Specimen (Source) Anatomical Collection Method Collection Time Re ceived Time Location / / Volume Laterality 07/09/2008 10:28 AM CDT Impressions 07/09/2008 10:56 AM CDT SCREENING MAMMOGRAM, BILATERAL, DIGITAL w/ CAD BREAST SYMPTOMS/COMPARISON:Routine. BREAST PARENCHYMAL PATTERN: heterogeneou sly dense. FINDINGS: Negative. IMPRESSION: ACR BI-RAD Category 1. Negat fitz. Shala Morrell MD SPECIAL IMAGING STUDIES documented in this encounter Visit Diagnoses Not on filedocumented in this encounter
--- OUTSIDE RECORDS SUMMARY | 2022-09-16 08:19 | XMS_ITS | Encounter Summary ---
:1970 Author Organization [place] Address [address] [place] [address] Care Team Providers Name Role Phone Unavailable Primary Care Provider Unavailable Encounter Details Date Type Department Care Team Description 07/22/2009 Results Only [facility] Lois Estevez MD Hospital Results [address] [phone] (Wo rk) Social History Tobacco Use Types Packs/Day Years Used Date Smoking Tobacco: Never Assessed Sex Assigned at Date Recorded Not on file documented as of this encounter Plan of Treatment Upcoming Encounters Date Type Specialty Care Team Description 11/04/2022 Appointment Radiology. Lois Estevez MD [address] [place], [place] [phone] (Wo rk) documented as of this encounter Procedures Procedure Name Priority Date/Time Associated Diagnosis Comme [facility] MAMMO SCREEN Routine 07/22/2009 10:39 AM Resul ts for this BILATATERAL, INCL CDT procedure are in CAD WHEN PERF the results section. documented in this encounter Results SCREENING MAMMOGRAPHY DIGITAL (BILAT) (07/22/2009 10:39 AM CDT) Anatomical Region Laterality Modality Other Specimen (Source) Anatomical Collection Method Collection Time Re ceived Time Location / / Volume Laterality 07/22/2009 10:39 AM CDT Impressions 07/22/2009 2:49 PM CDT SCREENING MAMMOGRAM BILATERAL, DIGITAL w / CAD ??- ??July 22, 2009 BREAST SYMPTOMS: No current breast compl aints. ??Family history of breast cancer in her mother (age 60). COMPARISON: Routine. 07/09/2008, 004. ?? PARENCHYMAL PATTERN: Scattered fibroglan dular elements. COMMENTS: No findings of suspicion for m alignancy. IMPRESSION: BI-RADS 1, NEGATIVE RECOMMENDATION: ??Annual screening mammo graphy. Lois Estevez MD SPECIAL IMAGING STUDIES documented in this encounter Visit Diagnoses Not on filedocumented in this encounter
[2022-09-16 14:36] LABS: Chloride* 104 mmol/L (96-114); Potassium* 4.9 mmol/L (3.6-5.1); Sodium* 140 mmol/L (135-149)
[2022-09-16 14:38] LABS: Creatinine* 0.7 mg/dL (0.5-1.5); Estimated Glomerular Filt Rate 103 ml/min
[2022-09-16 14:39] LABS: Blood Urea Nitrogen* 16 mg/dL (7-30); Calcium* 10.1 mg/dL (8.4-10.6); Carbon Dioxide* 29 mmol/L (20-32); Glucose* 96 mg/dL (60-115)
== END 2022-09-16 08:17 | disposition home or self-care (01) ==
LOC: LKVREF 08:17
PROVIDERS: PCP Emergency Medicine; Visit Provider Emergency Medicine
DX: I10 Essential (primary) hypertension (principal)
CPT/HCPCS: 80048

== ENCOUNTER 2023-06-09 08:27 | Outpatient (CLI) | payer OTHER, SELFPAY | END 2023-06-09 08:28 | disposition home or self-care (01) | LOC: LKVREF 08:28 | PROVIDERS: PCP Emergency Medicine; Visit Provider Emergency Medicine | DX: Z01.818 Encounter for other preprocedural examination (principal) | CPT/HCPCS: 80048 ==

== ENCOUNTER 2024-08-10 08:34 | Outpatient (CLI) | payer OTHER, SELFPAY ==
--- OUTSIDE RECORDS SUMMARY | 2024-08-10 08:36 | XMS_ITS | Referral Summary ---
Author Organization [place] Address [address] [place] [address] Care Team Providers Care Manufacturing Finance Manager Name Role Phone Lois Estevez MD Primary Care Provider [phone] Allergies No known active allergies Medications Medication Sig Dispensed Refills Start Date End Date Status lisinopril (ZESTRIL) 5 MG tablet Take 5 mg by mouth At Bedtime Active Active Problems Problem Noted Date Diagnosed Date Febrile neutropenia 05/05/2023 Social History Tobacco Use Types Packs/Day Years Used Date Smoking Tobacco: Never Assessed Adolescent Education Answer Date Record ed Getting School Help Needed Not on file 07/23 Sex and Gender Information Value Date Recorded Sex Assigned at Not on file Gender Identity Not on file Sexual Orientation Not on file Last Filed Vital Signs Vital Sign Reading Time Taken Comments Blood Pressure 130/82 08/04/2023 3:16 PM CDT Pulse 108 08/04/2023 9:47 AM CDT Temperature 36.8 ??C (98.2 ??F) 08/04/2023 9:47 AM CD T Respiratory Rate 18 08/04/2023 9:47 AM CDT Oxygen Saturation 98% 08/04/2023 11:45 AM CDT Inhaled Oxygen Concentration - - Weight 51.7 kg (114 lb) 08/04/2023 7:24 AM CDT Height 157.5 cm (5' 2) 08/04/2023 7:24 AM CDT Body Mass Index 20.85 08/04/2023 7:24 AM CDT Plan of Treatment Not on file Medical Devices Implanted Type Area Disability Rater Device Identifier Shelf Expiration Date Model / Serial / Lot Port-11/26/2022 Implanted:Qty: 1 on 11/26/2022 by Kenzie Ndiaye, Port 01/23/2024 / / [id number] Procedures Procedure Name Priority Date/Time Associated Diagnosis Comments FOLLICLE STIMULATING HORMONE Routine 08/01/2024 2:29 PM CDT Unspecified ovarian cyst, unspecified side CA 125 Routine 08/01/2024 2:29 PM CDT Unspecified ovarian cyst, unspecified side GYNECOLOGIC CYTOLOGY Routine 11/17/2023 5:30 PM [facility] [employer] MOLDER Encounter for gynecological examination (general) (routine) without abnormal findings HPV HIGH RISK TYPES DNA CERVICAL Routine 11/17/2023 5:30 PM [facility] [facility] Encounter for gynecological examination (general) (routine) without abnormal findings OCCULT BLOOD STOOL STAT 08/04/2023 10 :10 AM CDT COMPREHENSIVE METABOLIC PANEL STAT 08/04/2023 8:10 AM CDT [place] DIAGNOSTIC RIGHT W JOSE Routine 11/10/2022 8:15 AM [facility] [employer] M[facility]DER Other abnormal and inconclusive findings on diagnostic imaging of breast from Last 3 Months or Most Recently Relevant to Health Maintenance Results * Follicle stimulating hormone (08/01/2024 2:29 PM CDT) FSH 52.0 mIU/mL 08/02/2024 6:34 AM CDT [facility] Comment: 19 years and older: Follicular phase: 3.5-12.5 mIU/mL Ovulation phase: 4.7-21.5 mIU/mL Luteal phase: 1.7-7.7 mIU/mL Postmenopause: 25.8-134.8 mIU/mL Blood BLOOD SPECIMEN / Unknown Client Draw / Unknown 08/01/2024 2:29 PM CDT 08/01/2024 9:51 PM CDT Lois Estevez MD LAB - BLOOD ORDERABL ES LABORATORY [facility] [place] [facility] [address] [facility], [address] [phone] * CA 125 (08/01/2024 2:29 PM CDT) CA 125 15 <=38 U/mL 08/02/2024 6:3 4 AM CDT [facility] Blood BLOOD SPECIMEN / Unknown Client Draw / Unknown 08/01/2024 2:29 PM CDT 08/01/2024 9:51 PM CDT Narrative [facility] - 08/02/2024 6:34 AM CDT This result is obtained using the Marko Elecsys CA 125 II method on the burak e801 immunoassay analyzer. Results obtained with different assay methods or kits cannot be used interchangeably. Lois Estevez MD LAB - BLOOD ORDERABL ES Performing Organization Address [facility] de Phone Number LABORATORY [facility] [address] [facility], [address] [phone] * Gynecologic Cytology (PAP) (11/17/2023 5:30 PM SO[facility]ALL C[facility] MOLDER) Interpretation Negative for Intraepithelial Lesion or Malignancy (NILM) 11/22/2023 11:12 AM [facility] Comment Papanicolaou Test Limitations: Cervical cytology is a screening test with limited sensitivity, and regular screening is critical for cancer prevention. Pap tests are primarily effective for the diagnosis/prevent ion of squamous cell carcinoma, not adenocarcinoma or other cancers. 11/22/2023 11:12 AM [facility] Specimen Adequacy Satisfactory for evaluation, endocerv/transfor mation zone component absent, atrophy 11/22/2023 11:12 AM [facility] Clinical Information none 11/22/2023 11:12 AM [facility] LMP/Menopause Date NONE 11/22/2023 11:12 AM [facility] Reflex Testing Yes regardless of result 11/22/2023 11:12 AM [facility] Previous Abnormal? No 11/22/2023 11:12 AM [facility] Previous Abnormal Diagnosis Neg/Neg hpv 11/22/2023 11:12 AM [facility] Performing Labs The technical component of this testing was completed at [facility] 11/22/2023 11:12 AM [facility] Brushing CERVIX UTERI STRUCTURE / Unknown 11/17/2023 5:30 PM [facility] [employer] [facility] 11/17/2023 8:21 PM [facility] [employer] [facility] Lois [facility] Specialty Lab [address] [facility], [address] [place] [address], [facility] [phone] * HPV High Risk Types DNA Cervical (11/17/2023 5:30 PM SOFTBALL C[employer] MOLDER) Other HR HPV Negative Negative 11/24/2023 6:52 AM [facility] HPV16 DNA Negative Negative 11/24/2023 6:52 AM [facility] HPV18 DNA Negative Negative 11/24/2023 6:52 AM [facility] FINAL DIAGNOSIS This patient's sample is negative for HPV DNA. This test was developed and its performance characteristics determined by the [facility]. It has not been cleared or approved by the FDA. The laboratory is regulated under CLIA as qualified to perform high-complexity testing. This test is used for clinical purposes. It should not be regarded as investigational or for research. METHODOLOGY: The Marko Burak 4800 system uses automated extraction, simultaneous amplification of HPV (L1 region) and beta-globin, followed by real time detection of fluorescent labeled HPV and beta globin using specific oligonucleotide probes. The test specifically identifies types HPV 16 DNA and HPV 18 DNA while concurrently detecting the rest of the high risk types (31, 33, 35, 39, 45, 51, 52, 56, 58, 59, 66 or 68). COMMENTS: This test is not intended for use as a screening device for woman under age 30 with normal cervical cytology. Results should be correlated with cytologic and histologic findings. Close clinical followup is recommended. 11/24/2023 6:52 AM [facility] Brushing CERVIX UTERI STRUCTURE / Unknown Non-blood Collection / Unknown 11/17/2023 5:30 PM [facility] [employer] [facility] 11/23/2023 7:38 AM [facility] [employer] [facility] Lois Estevez MD LAB - BLOOD ORDERABL ES MOLECULAR DIAGNOSTICS [facility] [address] [facility] [address] [facility], [address] [place] [address], [facility] [phone] * (ABNORMAL) Stool: occult blood (08/04/2023 10:10 AM CDT) Occult Blood Positive(A ) Negative BARTOLOME 08/04/2023 10:21 AM CDT LABORATORY Stool RECTAL CONTENTS / Unknown Non-blood Collection / Unknown 08/04/2023 10:10 AM CDT 08/04/2023 10:19 AM CDT Joe Rutledge MD LAB - STOOLS ORDERAB LES LABORATORY [facility] [address] Lab (1st floor, no room number) [place] [address], [place] [phone] * (ABNORMAL) Comprehensive metabolic panel (08/04/2023 8:10 AM CDT) Sodium 141 135 - 145 mmol/L 08/04/2023 8:49 AM CDT LABORATORY Comment:Reference intervals for this test were updated on 07/20/2023 to more accurately reflect our healthy population. There may be differences in the flagging of prior results with similar values performed with this method. Interpretation of those prior results can be made in the context of the updated reference intervals. Potassium 3.5 3.4 - 5.3 mmol/L 08/04/2023 8:49 AM CDT LABORATORY Carbon Dioxide (CO2) 25 22 - 29 mmol/L 08/04/2023 8:49 AM CDT [facility] Anion Gap 12 7 - 15 mmol/L 08/04/2023 8:49 AM CDT [facility] Urea Nitrogen 7.6 6.0 - 20.0 mg/dL 08/04/2023 8:49 AM CDT [facility] Creatinine 0.54 0.51 - 0.95 mg/dL 08/04/2023 8:49 AM CDT [facility] GFR Estimate >90 >60 mL/min/1. 73m2 08/04/2023 8:49 AM CDT [facility] Calcium 9.5 8.6 - 10.0 mg/dL 08/04/2023 8:49 AM CDT [facility] Chloride 104 98 - 107 mmol/L 08/04/2023 8:49 AM CDT [facility] Glucose 118(H) 70 - 99 mg/dL 08/04/2023 8:49 AM CDT [facility] Alkaline Phosphatase 74 35 - 104 U/L 08/04/2023 8:49 AM CDT [facility] AST 19 0 - 45 U/L 08/04/2023 8:49 AM CDT [facility] Comment:Reference intervals for this test were updated on 04/05/2023 to more accurately reflect our healthy population. There may be differences in the flagging of prior results with similar values performed with this method. Interpretation of those prior results can be made in the context of the updated reference intervals. ALT 16 0 - 50 U/L 08/04/2023 8:49 AM CDT [facility] Comment:Reference intervals for this test were updated on 04/05/2023 to more accurately reflect our healthy population. There may be differences in the flagging of prior results with similar values performed with this method. Interpretation of those prior results can be made in the context of the updated reference intervals. Protein Total 6.3(L) 6.4 - 8.3 g/dL 08/04/2023 8:49 AM CDT [facility] Albumin 4.1 3.5 - 5.2 g/dL 08/04/2023 8:49 AM CDT [facility] Bilirubin Total 0.4 <=1.2 mg/dL 08/04/2023 8:49 AM CDT [facility] Blood BLOOD SPECIMEN / Unknown Venipuncture / Unknown 08/04/2023 8:10 AM CDT 08/04/2023 8:26 AM CDT Joe Rutledge MD LAB - BLOOD ORDERABL ES [facility] [address] [facility] Lab (1st floor, no room number) [place] [address], [facility] [phone] * [place] Diagnostic Right w/Jose (11/10/2022 8:15 AM [facility] [facility]) Anatomical Region Laterality Modality Breast Bilateral Mammography Impressions 11/10/2022 3:40 PM [facility] M[facility]DER IMPRESSION: BI-RADS CATEGORY: 4 - Suspicious. Parenchymal asymmetry in the lower inner quadrant of the right breast with an associated discrete mass. There is also a prominent right axillary lymph node. Findings were discussed with the patient. Ultrasound-guided core biopsy of the discrete mass and the axillary lymph node were performed subsequently. RECOMMENDED FOLLOW-UP: Biopsy. REKHA WHITESIDE MD Narrative 11/10/2022 3:40 PM SO[employer]ALL C[employer] MOLDER [place] DIAGNOSTIC RIGHT W/ JOSE, US BREAST RIGHT LIMITED 1-3 QUADRANTS - ??11/10/2022 9:12 AM HISTORY: ??Recalled from screening of 11/04/2022 regarding possible asymmetry/mass in the right lower inner breast. COMPARISON: ??11/04/2022, 10/31/2021, 10/11/2020 BREAST DENSITY: Scattered fibroglandular densities. FINDINGS: ??Diagnostic views of the right breast were obtained with tomosynthesis. There is parenchymal asymmetry and a discrete partially circumscribed mass in the lower inner quadrant of the right breast. Mammographically the maximum dimensions of the abnormality are approximately 5.9 cm AP by 5.8 cm transverse by 2.2 cm craniocaudal. The discrete mass has a maximum dimension of 1.4 cm. There are no associated calcifications. Further evaluation with targeted ultrasound shows poorly defined hypoechoic tissue at the 3:00-6:00 position, 2-7 cm from the nipple. There is a discrete mass at the 4:00 position, 6 cm from the nipple, measuring 1.4 x 1.1 x 1.4 cm. The mass has significant internal vascularity by color Doppler. By ultrasound the maximum measured dimension of the abnormal area is 5.7 cm. Survey of the axilla shows a mildly prominent lymph node measuring 0.8 x 1.2 x 0.5 cm with cortical thickness of 0.2 cm. Lois Estevez MD IMG MAMMOGRAPHY LYDIA KNIGHT from Last 3 Months or Most Recently Relevant to Health Maintenance Advance Directives For more information, please contact: [phone] * Full Code (Latest Code Status on File) Date Activated Date Inactivated Comments 05/05/2023 8:54 PM 05/08/2023 3:47 PM All basic an d advanced life-sustaining interventions are performed as appropriate Question Answer Comments Code status determined by: Discussion with mike amezquita/ legal decision maker Care Teams Manufacturing Finance Manager Relationship Specialty Start Date End Date Lois Estevez MD [address] [facility] [address] [place] [address] PCP - General juvenile justice officer 08/10/11
--- OUTSIDE RECORDS SUMMARY | 2024-08-10 08:36 | XMS_ITS | Clinical Summary ---
Author Organization [facility] Address [address] [place] [id number] Care Team Providers Care Pocket Grinder Operator Name Role Phone Lois Estevez MD Primary Care Provider [phone] Allergies No known active allergies Medications Medication Sig Dispensed Refills Start Date End Date Status lisinopril (ZESTRIL) 5 MG tablet Take 5 mg by mouth At Bedtime Active Active Problems Problem Noted Date Diagnosed Date Febrile neutropenia 05/05/2023 Family History Medical History Relation Comments Breast [...] 08/04/2023 7:24 AM CDT Plan of Treatment Health Maintenance Due Date Last Done Comments ADVANCE CARE PLANNING 1968 ANNUAL REVIEW OF HM ORDERS 1968 CT COLONOGRAPHY 1968 FLEX SIG 1968 sDNA (Cologuard) 1968 Pneumococcal Vaccine: Pediatrics (0 to 5 Years) and At-Risk Patients (6 to 64 Years) (1 of 2 - PCV) 1974 HIV SCREENING 1983 HEPATITIS C SCREENING 1986 HEPATITIS B IMMUNIZATION (1 of 3 - 19+ 3-dose series) 1987 LIPID 2008 DTAP/TDAP/TD IMMUNIZATION (3 - Td or Tdap) 02/28/2022 02/29/2012, 04/22/1999, 05/25/1988 PHQ-2 (once per calendar year) 2023 COVID-19 Vaccine ( season) 2024 03/28/2022, 09/28/2021, 01/22/2021, Additional history exists INFLUENZA VACCINE (#1) 2024 , 08/23/2021, 08/01/2020, Additional history exists FIT 08/04/2024 08/04/2023 MAMMO SCREENING 11/10/2024 11/10/2022, 10/25, 10/31/2021, Additional history exists YEARLY PREVENTIVE VISIT 11/17/2024 11/17/2023, 10/31 GLUCOSE 08/04/2026 08/04/2023, 04/24, 05/05/2023 HPV TEST 11/17/2028 11/17/2023 PAP 11/17/2028 11/17/2023 COLONOSCOPY 11/10/2031 11/10/2021 COLORECTAL CANCER SCREENING 11/10/2031 RSV VACCINE (1 - 1-dose 75+ series) 2043 ZOSTER IMMUNIZATION Completed 11/22/2020, 0 HPV IMMUNIZATION Aged Out No longer e ligible based on patient's age to complete this topic MENINGITIS IMMUNIZATION Aged Out No l onger eligible based on patient's age to complete this topic RSV MONOCLONAL ANTIBODY Aged Out No l onger eligible based on patient's age to complete this topic Medical Devices Implanted Type Area Emergency Operator Device Identifier Shelf Expiration Date Model / Serial / Lot Port-11/26/2022 Implanted:Qty: 1 on 11/26/2022 by Kenzie Ndiaye DO Port 01/23/2024 / / [id number] Procedures Procedure Name Priority Date/Time Associated Diagnosis Comments FOLLICLE STIMULATING HORMONE Routine 08/01/2024 2:29 PM CDT Unspecified ovarian cyst, unspecified side CA 125 Routine 08/01/2024 2:29 PM CDT Unspecified ovarian cyst, unspecified side GYNECOLOGIC CYTOLOGY Routine 11/17/2023 5:30 PM AUTOMOBILE LEASING SUPERVISOR Encounter for gynecological examination (general) (routine) without abnormal findings HPV HIGH RISK TYPES DNA CERVICAL Routine 11/17/2023 5:30 PM AUTOMOBILE LEASING SUPERVISOR Encounter for gynecological examination (general) (routine) without abnormal findings OCCULT BLOOD STOOL STAT 08/04/2023 10 :10 AM CDT COMPREHENSIVE METABOLIC PANEL STAT 08/04/2023 8:10 AM CDT MA DIAGNOSTIC RIGHT W JOSE Routine 11/10/2022 8:15 AM AUTOMOBILE LEASING SUPERVISOR Other abnormal and inconclusive findings on diagnostic [...] Estevez MD LAB - BLOOD ORDERABL ES [facility] [address] [facility], [address] [phone] * CA 125 (08/01/2024 2:29 PM CDT) [...] - BLOOD ORDERABL ES Performing Organization Address [facility]/ZIP Co de Phone Number [facility] [address] [facility], [address] [place] [phone] * Gynecologic Cytology (PAP) (11/17/2023 5:30 PM AUTOMOBILE LEASING SUPERVISOR) Interpretation Negative for Intraepithelial Lesion or Malignancy (NILM) 11/22/2023 11:12 AM AUTOMOBILE LEASING SUPERVISOR [facility] Comment Papanicolaou Test Limitations: Cervical cytology is a screening test with limited sensitivity, and regular screening is critical for cancer prevention. Pap tests are primarily effective for the diagnosis/prevent ion of squamous cell carcinoma, not adenocarcinoma or other cancers. 11/22/2023 11:12 AM AUTOMOBILE LEASING SUPERVISOR [facility] Specimen Adequacy Satisfactory for evaluation, endocerv/transfor mation zone component absent, atrophy 11/22/2023 11:12 AM AUTOMOBILE LEASING SUPERVISOR [facility] Clinical Information none 11/22/2023 11:12 AM AUTOMOBILE LEASING SUPERVISOR [facility] LMP/Menopause Date NONE 11/22/2023 11:12 AM AUTOMOBILE LEASING SUPERVISOR [facility] Reflex Testing Yes regardless of result 11/22/2023 11:12 AM AUTOMOBILE LEASING SUPERVISOR [facility] Previous Abnormal? No 11/22/2023 11:12 AM AUTOMOBILE LEASING SUPERVISOR [facility] Previous Abnormal Diagnosis Neg/Neg hpv 11/22/2023 11:12 AM AUTOMOBILE LEASING SUPERVISOR [facility] Performing Labs The technical component of this testing was completed at [facility] 11/22/2023 11:12 AM AUTOMOBILE LEASING SUPERVISOR [facility] Brushing CERVIX UTERI STRUCTURE / Unknown 11/17/2023 5:30 PM AUTOMOBILE LEASING SUPERVISOR 11/17/2023 8:21 PM AUTOMOBILE LEASING SUPERVISOR Lois ALBERTO - D[facility] Specialty Lab [address] [facility], Room [address] [place] [phone], [facility] [phone] * HPV High Risk Types DNA Cervical (11/17/2023 5:30 PM AUTOMOBILE LEASING SUPERVISOR) Other HR HPV Negative Negative 11/24/2023 6:52 AM AUTOMOBILE LEASING SUPERVISOR [facility] HPV16 DNA Negative Negative 11/24/2023 6:52 AM AUTOMOBILE LEASING SUPERVISOR [facility] HPV18 DNA Negative Negative 11/24/2023 6:52 AM AUTOMOBILE LEASING SUPERVISOR [facility] FINAL DIAGNOSIS This patient's sample is negative for HPV DNA. This test was developed and its performance characteristics determined by the [facility], [facility]. It has not been [...] clinical followup is recommended. 11/24/2023 6:52 AM AUTOMOBILE LEASING SUPERVISOR [facility] Brushing CERVIX UTERI STRUCTURE / Unknown Non-blood Collection / Unknown 11/17/2023 5:30 PM AUTOMOBILE LEASING SUPERVISOR 11/23/2023 7:38 AM AUTOMOBILE LEASING SUPERVISOR Lois Estevez MD LAB - BLOOD ORDERABL ES [facility] [address] [facility], [address] [place] [address], [facility] [phone] * (ABNORMAL) Stool: occult blood (08/04/2023 10:10 AM CDT) Occult Blood Positive(A ) Negative BARTOLOME 08/04/2023 10:21 AM CDT LABORATORY Stool RECTAL CONTENTS / Unknown Non-blood Collection / Unknown 08/04/2023 10:10 AM CDT 08/04/2023 10:19 AM CDT Joe Rutledge MD LAB - STOOLS ORDERAB LES LABORATORY [facility] [address] Lab (1st floor, no room number) [place] [address], [facility] [phone] * (ABNORMAL) Comprehensive metabolic panel (08/04/2023 8:10 [...] - 29 mmol/L 08/04/2023 8:49 AM CDT LABORATORY Anion Gap 12 7 - 15 [...] Rutledge MD LAB - BLOOD ORDERABL ES [facility] [address] [facility] Lab (1st floor, no room number) [place] [address], [facility] [phone] * [place] Diagnostic Right w/Jose (11/10/2022 8:15 AM AUTOMOBILE LEASING SUPERVISOR) Anatomical Region Laterality Modality Breast Bilateral Mammography Impressions 11/10/2022 3:40 PM AUTOMOBILE LEASING SUPERVISOR IMPRESSION: BI-RADS CATEGORY: 4 - Suspicious. Parenchymal asymmetry in the lower inner quadrant of the right breast with an associated discrete mass. There is also a prominent right axillary lymph node. Findings were discussed with the patient. Ultrasound-guided core biopsy of the discrete mass and the axillary lymph node were performed subsequently. RECOMMENDED FOLLOW-UP: Biopsy. REKHA WHITESIDE MD Narrative 11/10/2022 3:40 PM AUTOMOBILE LEASING SUPERVISOR [place] DIAGNOSTIC RIGHT W/ JOSE, US BREAST [...] Advance Directives For more information, please contact: [phone] * Full Code (Latest Code Status on File) Date Activated Date Inactivated Comments 05/05/2023 8:54 PM 05/08/2023 3:47 PM All basic an d advanced life-sustaining interventions are performed as appropriate Question Answer Comments Code status determined by: Discussion with mike amezquita/ legal decision maker Care Teams Pocket Grinder Operator Relationship Specialty Start Date End Date Lois Estevez MD [address] [address] PCP - General executive associate 08/10/11
--- OUTSIDE RECORDS SUMMARY | 2024-08-10 08:36 | XMS_ITS | Clinical Summary ---
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 Active methocarbamoL (ROBAXIN) 750 mg tabletIndications:Malig nant neoplasm of lower-inner quadrant of right breast of female, estrogen receptor negative (HC) Take 1 Tablet (750 mg) by mouth every 6 hours. 40 Tablet 06/24/2023 Active oxyCODONE (ROXICODONE) 5 mg immediate release tabletIndications:Malig nant neoplasm of lower-inner quadrant of right breast of female, estrogen receptor negative (HC) Take 1-2 Tablets (5-10 mg) by mouth every 4 hours if needed for Pain. 40 Tablet 06/24/2023 Active ondansetron (ZOFRAN ODT) 4 mg disintegrating tabletIndications:Malig nant neoplasm of lower-inner quadrant of right breast of female, estrogen receptor negative (HC) Place 1 Tablet (4 mg) on the tongue every 8 hours if needed for Nausea/Vomiting . 15 Tablet 06/24/2023 Active Active Problems Problem Noted Date Diagnosed Date Malignant neoplasm of lower- inner quadrant of right breast of female, estrogen receptor negative 06/23/2023 Social History Tobacco Use Types Packs/Day Years Used Date Smoking Tobacco: Never Smokeless Tobacco: Never Alcohol Use Standard Drinks/Week Comments Not Currently 0 (1 standard drink = 0.6 oz pur e alcohol) Sex and Gender Information Value Date Recorded Sex Assigned at Not on file Gender Identity Not on file Sexual Orientation Not on file Obstetrics History Last Filed Vital Signs Vital Sign Reading Time Taken Comments Blood Pressure 124/56 06/24/2023 8:18 AM CDT Pulse 71 06/24/2023 8:18 AM CDT Temperature 36.7 ??C (98 ??F) 06/24/2023 8:18 AM CDT Respiratory Rate 18 06/24/2023 8:18 AM CDT Oxygen Saturation 98% 06/24/2023 8:18 AM CDT Inhaled Oxygen Concentration - - Weight 54.4 kg (120 lb) 06/23/2023 12:27 PM CDT Height 157.5 cm (5' 2) 06/23/2023 12:27 PM CDT Body Mass Index 21.95 06/23/2023 12:27 PM CDT Plan of Treatment Health Maintenance Due Date Last Done Comments Tdap 1979 Depression screening for age 12+ 1980 HIV for age 15-65 1983 BMI (ht and wt on same day) for age 18+ 1986 Hepatitis C screening for age 18-79 1986 Tetanus booster 1988 Pap test for age 21-65 1989 Colonoscopy through age 75 2013 Lipids for age 45-75 2013 Mammogram for age 45-75 2013 Zoster (shingles) series for age 50+ (1 of 2) 2018 COVID-19 vaccine series (2023- season) 2024 03/28/2022, 09/28/2021, 01/22/2021, Additional history exists Influenza for age 50-64 06/25/2024 Pneumococcal series for age 6-64 Aged Out No longer eligible based on patient's age to complete this topic Medical Devices Implanted Type Area Retail Worker Device Identifier Shelf Expiration Date Model / Serial / Lot Mesh [id number] Sri Dsouza Md Human - [id number] Implanted:Qty: 1 on 06/23/2023 by Johnny Blackmon MD at [facility] Bilateral: Breast [employer] 04/23/2025 [id number] / [id number] / Cpx??4 Smooth Plus, Medium Height Profile, With Suture Tabs, 450cc Implanted:Qty: 1 on 06/23/2023 by Johnny Blackmon MD at [facility] Left: Breast [employer] 02/18/2027 [id number] / [id number] Description:CPX??[address] US, MEDIUM HEIGHT PROFILE, WITH SUTURE TABS, 450CC Cpx??4 Smooth Plus, Medium Height Profile, With Suture Tabs, 450cc Implanted:Qty: 1 on 06/23/2023 by Johnny Blackmon MD at [facility] Right: Breast [employer] 02/18/2027 [id number] / [id number] Description:CPX??[address] US, MEDIUM HEIGHT PROFILE, WITH SUTURE TABS, 450CC Advance Directives * Full Code (Latest Code Status on File) Date Activated Date Inactivated Comments 06/23/2023 12:02 PM 06/24/2023 3:56 PM Question Answer Comments Code Status Discussion: Not Discussed * Full Code Date Activated Date Inactivated Comments 06/23/2023 12:02 PM 06/23/2023 12:02 PM Question Answer Comments Code Status Discussion: Reviewed Preferences Care Teams Balance Wheel Screw Hole Driller Relationship Specialty Start Date End Date Ale Munroe MD [address] [place] [id number] PCP - General Emergency Medicine 06/23/23
== END 2024-08-10 08:35 | disposition home or self-care (01) ==
LOC: LKVREF 08:34
PROVIDERS: PCP Emergency Medicine; Visit Provider Emergency Medicine
DX: I10 Essential (primary) hypertension (principal); E53.8 Deficiency of other specified B group vitamins; E78.5 Hyperlipidemia, unspecified
CPT/HCPCS: 80048; 82607

== ENCOUNTER 2025-06-06 08:52 | Outpatient (CLI) | payer BC, SELFPAY | END 2025-06-06 08:53 | disposition home or self-care (01) | PROVIDERS: PCP Emergency Medicine; Visit Provider Physician Assistant Medical | DX: I10 Essential (primary) hypertension (principal); E78.5 Hyperlipidemia, unspecified; E53.8 Deficiency of other specified B group vitamins; Z78.0 Asymptomatic menopausal state; Z82.49 Family history of ischemic heart disease and other diseases of the circulatory system; Z83.79 Family history of other diseases of the digestive system | CPT/HCPCS: 82306; 82607; 82784; 83695; 86140; 86231; 86258; 86364 ==

== ENCOUNTER 2025-06-22 08:43 | Outpatient (CLI) | payer BC, SELFPAY | END 2025-06-22 08:44 | disposition home or self-care (01) | LOC: NFLDREF 06-26 03:03 | PROVIDERS: PCP Physician Assistant Medical; Referring Provider Emergency Medicine; Visit Provider Physician Assistant Medical | DX: E78.2 Mixed hyperlipidemia (principal); Z83.79 Family history of other diseases of the digestive system | CPT/HCPCS: 80061; 82784 ==

== ENCOUNTER 2025-07-24 06:34 | Outpatient (CLI) | payer BC, SELFPAY ==
--- NOTE | 2025-07-24 07:34 | P.ANES_ITS ---
Anesthesia Charges Start Date/Time Anesthesia Start Date: 07/24/25 Anesthesia Start Time: 07:12 Stop Date/Time Anesthesia Stop Date: 07/24/25 Anesthesia Stop Time: 07:27 Coding CPT Codes CPT Codes: ANES UPR GI NDSC PX NOS - 91283 ([id number]) P2 - PATIENT W/MILD SYST DISEASE, QK - SILK PRESSER 2-4 CNCRNT ANES PROC
--- NOTE | 2025-07-24 07:34 | W.ANESCHARGE ---
Anesthesia Charges Start Date/Time Anesthesia Start Date: 07/24/25 Anesthesia Start Time: 07:12 Stop Date/Time Anesthesia Stop Date: 07/24/25 Anesthesia Stop Time: 07:27 Coding CPT Codes CPT Codes: ANES UPR GI NDSC PX NOS - 69835 ([id number]) P2 - PATIENT W/MILD SYST DISEASE, QK - GENERAL HOUSE WORKER 2-4 CNCRNT ANES PROC
--- NOTE | 2025-07-24 12:22 | P.ANES_ITS ---
Anesthesia Charges Start Date/Time Anesthesia Start Date: 07/24/25 Anesthesia Start Time: 07:12 Stop Date/Time Anesthesia Stop Date: 07/24/25 Anesthesia Stop Time: 07:27 Coding CPT Codes CPT Codes: ANES UPR GI NDSC PX NOS - 09415 ([id number]) P2 - PATIENT W/MILD SYST DISEASE, QK - SENIOR CARE MANAGER 2-4 CNCRNT ANES PROC, QX - PANEL INSTALLER SVC W/ MD MED DIRECTION
--- NOTE | 2025-07-24 12:22 | W.ANESCHARGE ---
Anesthesia Charges Start Date/Time Anesthesia Start Date: 07/24/25 Anesthesia Start Time: 07:12 Stop Date/Time Anesthesia Stop Date: 07/24/25 Anesthesia Stop Time: 07:27 Coding CPT Codes CPT Codes: ANES UPR GI NDSC PX NOS - 84993 ([id number]) P2 - PATIENT W/MILD SYST DISEASE, QK - CLIENT EVALUATOR 2-4 CNCRNT ANES PROC, QX - GAGE MAKER SVC W/ MD MED DIRECTION
== END 2025-07-24 06:35 | disposition home or self-care (01) ==
PROVIDERS: PCP Physician Assistant Medical; Visit Provider Surgery
DX: D80.2 Selective deficiency of immunoglobulin A [IgA] (principal); K44.9 Diaphragmatic hernia without obstruction or gangrene; Z83.79 Family history of other diseases of the digestive system
CPT/HCPCS: 00731; 43239; 88305; J2704; J3490